=== PATIENT | female | born 1950 | race Caucasian/White ===

== ENCOUNTER 2019-11-09 16:57 | Emergency (ER) | payer OTHER ==
[~2019-11-09] VITALS: Ht 160 cm; Wt 53.5 kg
[~2019-11-09 16:57] MED LIST: CO Q-1050 MG PO; FOSAMAX70 MG PO; MULTIVITAMINS1 EAC7 PO
--- OUTSIDE RECORDS SUMMARY | 2019-11-09 17:00 | XMS REPORT ---
Author Author [facility] Address Unknown Phone Unavailable Care Team Providers Care Specifications Checker Name Role Phone Rhiannon MILLER Unavailable Unavailable Problems This patient has no known problems. Allergies, Adverse Reactions, Alerts This patient has no known allergies or adverse reactions. Medications This patient has no known medications. Results Test Description Test Time Test Comments Text Results Atomic Results Result Comments URINALYSIS W/ MICROSCOPIC 2019-07-17 17:21:00 COLOR (BEAKER) (test kvxh=596) Light Yellow CLARITY (BEAKER) (test dowi=464) Clear SPECIFIC GRAVITY UA (BEAKER) (test kxcu=432) 1.012 1.001-1.035 PH UA (BEAKER) (test lwwc=637) 6.5 5.0-8.0 PROTEIN UA (BEAKER) (test bpbg=847) Negative Negative GLUCOSE UA (BEAKER) (test amak=309) Negative Negative KETONES UA (BEAKER) (test ecsx=380) Trace Negative BILIRUBIN UA (BEAKER) (test jpkz=741) Negative Negative BLOOD UA (BEAKER) (test icsm=479) Negative Negative NITRITE UA (BEAKER) (test yuuf=657) Negative Negative LEUKOCYTE ESTERASE UA (BEAKER) (test xcen=378) Negative Negative UROBILINOGEN UA (BEAKER) (test dmmg=160) 0.2 mg/dL 0.2-1.0 RBC UA (BEAKER) (test pfrj=173) < /HPF WBC UA (BEAKER) (test mynz=953) 0 /HPF SQUAMOUS EPITHELIAL (BEAKER) (test jeqj=768) < /HPF SOURCE(BEAKER) (test zhpy=5333) SCR MAMM BILATERAL BILL CAD [id number] 10:55:03 - SCR MAMM BILATERAL BILL CAD DIGITALBILATERAL DIGITAL SCREENING MAMMOGRAM 3D/2D WITH CAD: 03/21/2019CLINICAL: Asymptomatic. Digital breast tomosynthesis was performed in addition to routine CC and MLO views. Current mammographic images were evaluated by either a YuanV M-Vu or a [employer] ImageChecker CAD (computer aided detection system). Comparison is made to exams dated 03/19/2018 mammogram, 03/16/2017 mammogram, and 03/09/2016 mammogram - [facility]. The tis wallace of both breasts is heterogeneously dense. This may lower the sensitivity of mammography. No suspicious mass, architectural distortion, malignant type calci fication, or lymph node abnormality detected. Breast architecture is stable com pared to prior exams.IMPRESSION: NEGATIVEThere is no mammographic evidence of ma lignancy. Resume annual screening mammography in one year. Jimmy Zaragoza M.D. et/penrad:03/25/2019 10:55:03 Regional Education Manager: Corinne Condon [facility] sent: BIRADS 1-2 Normal Mammogram BI-RADS: 1 Francia santos
[2019-11-09 17:57] LABS: BACTERIA,URINE FEW /HPF; BILIRUBIN,URINE NEGATIVE (NEGATIVE); CLARITY,URINE HAZY (CLEAR); COLOR,URINE YELLOW (YELLOW); EPITHELIAL CELLS,URINE FEW /LPF; KETONES,URINE NEGATIVE (NEGATIVE); LEUKOCYTE ESTERASE ,URINE NEGATIVE (NEGATIVE); NITRITE,URINE NEGATIVE (NEGATIVE); PROTEIN,URINE DIPSTICK NEGATIVE (NEGATIVE); RBC,URINE 0-5 /HPF (0-5); URINE UROBILINOGEN 0.2 mg/dL (0.2 - 1); WBC,URINE (MAN) 0-5 /HPF (0-5)
[2019-11-09] MEDS ORDERED: SODIUM CHLORIDE 0.9% 1000ML 1,000 ML IV STA (18:07)
[2019-11-09] MEDS ORDERED: KETOROLAC TROMETHAMINE 30 MG/ML VIAL IV STA (18:07)
--- NOTE | 2019-11-09 18:16 | Diagnostic Imaging Report ---
EXAM: CT Abdomen and Pelvis WITHOUT contrast INDICATION: ^STONE PROTOCOL ^[id number] ^1730 COMPARISON: None. TECHNIQUE: Abdomen and pelvis were scanned utilizing a multidetector helical scanner from the lung base to the pubic symphysis without administration of IV contrast. Absence of intravenous contrast decreases sensitivity for detection of focal lesions and vascular pathology. Coronal and sagittal reformations were obtained. Renal stone protocol was performed. IV CONTRAST: None. ORAL CONTRAST: Water RADIATION DOSE: Total DLP: 161.3 mGy*cm Estimated effective dose: (DLP x 0.015 x size factor) mSv COMPLICATIONS: None FINDINGS: LINES and TUBES: None. LOWER THORAX: Mild linear scarring in the left lower lobe. HEPATOBILIARY: No focal hepatic lesions. No biliary ductal dilation. GALLBLADDER: No radio-opaque stones or sludge. No wall thickening. SPLEEN: No splenomegaly. PANCREAS: No focal masses or ductal dilatation. ADRENALS: No adrenal nodules KIDNEYS/URETERS: No hydronephrosis. 3.3 cm water attenuation cystic lesion in the left renal pelvis may reflect pelviectasis or parapelvic cyst. There is also a water attenuation exophytic cyst in the upper pole of the left kidney on coronary much 43. This measures 1.8 cm. No stones. GI TRACT: No abnormal distention, wall thickening, or evidence of bowel obstruction. Left amount of retained stool throughout the colon. Appendix is normal. PELVIC ORGANS/BLADDER: Unremarkable. LYMPH NODES: No lymphadenopathy. VESSELS: Unremarkable. PERITONEUM / RETROPERITONEUM: No free air or fluid. BONES: Minimal anterolisthesis of L4 over L5. Moderate degenerative changes at L2-L3. SOFT TISSUES: Unremarkable. IMPRESSION: 1. Few left renal cysts, which appear simple on limited evaluation. Consider ambulatory renal ultrasound for further evaluation. No calcified stones in the bilateral collecting system. 2. Large amount of retained stools throughout the colon without bowel dilatation or obstruction suggestive of constipation. Signed by: Dr. Qi Teixeira M.D. on 11/09/2019 6:13 PM
[2019-11-09 18:24] LABS: BASOPHILS % 0.3 % (0.0-1.0); EOSINOPHILS % 0.1 % (0.0-6.0); HEMATOCRIT 38.5 % (34.2-44.1); HEMOGLOBIN 12.1 g/dL (12.0-16.0); LYMPHOCYTES # (AUTO) 1.4 (1.0-3.2); MEAN CORPUSCULAR HEMOGLOBIN 29.6 pg (28-32); MEAN CORPUSCULAR HGB CONC 31.4 g/dL (31-35); MEAN CORPUSCULAR VOLUME 94.1 fL (81-99); MONOCYTES # (AUTO) 0.5 (0.2-0.8); NEUTROPHILS # (AUTO) 5.3 (2.1-6.9); NEUTROPHILS % 73.2 % (38.7-80.0); PLATELET COUNT 311 x10e3/uL (140-360); RED BLOOD COUNT 4.09 x10e6/uL (3.6-5.1); RED CELL DISTRIBUTION WIDTH 13.1 % (11.7-14.4)
--- NOTE | 2019-11-09 18:37 | NUR ---
BP 186/90, PATIENT STATES HER BP ALWAYS GOES UP WHEN SHE GOES TO SEE THE DOCTOR. AT HOME IT RUNS 122 TO 139 AND HER PRIMARY DOCTOR IS MONITORING IT EVERY 6 MONTHS
[2019-11-09 18:42] LABS: ANION GAP 12.5 mmol/L (8-16); BLOOD UREA NITROGEN 12 mg/dL (7-26); BUN/CREATININE RATIO 14 (6-25); CALCIUM 9.1 mg/dL (8.4-10.2); CARBON DIOXIDE 26 mmol/L (22-29); CHLORIDE 104 mmol/L (98-107); CREATININE, SERUM 0.84 mg/dL (0.57-1.11); EST GLOMERULAR FILTRATION RATE > 60 ML/MIN (60-); GLUCOSE 114 mg/dL (74-118); POTASSIUM 3.5 mmol/L (3.5-5.1); SODIUM 139 mmol/L (136-145)
== END 2019-11-09 19:19 | disposition home or self-care (01) ==
LOC: ER 16:57
DX: K59.00 Constipation, unspecified (principal); R10.32 Left lower quadrant pain
CPT/HCPCS: 36415; 74176; 80048; 81001; 85025; 99284; J1885; J7030